=== PATIENT | female | born 2000 | race Caucasian/White ===

== ENCOUNTER 2019-11-06 14:12 | Emergency (ER) | payer SELFPAY ==
[~2019-11-06] VITALS: Ht 167.6 cm; Wt 75.9 kg
[2019-11-06 14:20] VITALS: TEMP 98.9
[2019-11-06 15:15] VITALS: BP 138/96; PULSE 102
== END 2019-11-06 15:15 | disposition home or self-care (01) ==
LOC: COL.ER 14:12
DX: Z91.018 Allergy to other foods (principal)
CPT/HCPCS: J1100

== ENCOUNTER 2020-01-19 09:17 | Emergency (ER) | payer MEDICAID ==
[~2020-01-19] VITALS: Ht 167.6 cm; Wt 75.9 kg
[2020-01-19 09:24] VITALS: TEMP 98.1
[2020-01-19 10:28] LABS: BASO % 0.6 % (0.0-2.0); EOS % 0.2 % (0-4.0); GRAN # 4.2 (1.4-6.5); GRAN % 66.4 % (42.2-75.2); HEMATOCRIT 37.2 % (35.0-45.0); HEMOGLOBIN 12.3 g/dl (12.0-15.0); LYMPH # 1.6 (1.2-3.4); LYMPH % 25.8 % (20.0-51.0); MEAN CELL VOLUME 93 fl (80.0-95.0); MEAN CORPUSCULAR HEMOGLOBIN 31 pg (26.0-32.0); MEAN CORPUSCULAR HGB CONC 33 g/dl (33.0-37.0); MEAN PLATELET VOLUME 9.1 fl (7.4-10.4); MONO # 0.4 (0.1-0.6); MONO % 6.8 % (1.7-9.3); PLATELET COUNT 301 K/mm3 (130-400); RED BLOOD COUNT 3.99 M/mm3 (4.10-5.30); REDCELL DISTRIBUTION WIDTH-CV 12.9 % (11.5-14.5)
[2020-01-19 10:38] LABS: ALBUMIN 4.3 gm/dL (3.5-5.0); BILIRUBIN,TOTAL 0.6 mg/dL (0.0-1.0); CALCIUM 9.4 mg/dL (8.4-10.2); CREATININE, serum 0.67 (0.52-1.25); POTASSIUM 4.2 mmol/L (3.4-5.0); TOTAL PROTEIN 7.2 gm/dL (6.4-8.2)
[2020-01-19 14:08] VITALS: BP 119/81; PULSE 74
== END 2020-01-19 14:09 | disposition home or self-care (01) ==
LOC: COL.ER 09:17
PROVIDERS: Emergency Medicine
DX: O02.0 Blighted ovum and nonhydatidiform mole (principal)
CPT/HCPCS: J2791

== ENCOUNTER → 2020-01-21 | Outpatient (CLI) | payer MEDICAID ==
[~2020-01-21] VITALS: Ht 167.6 cm; Wt 185.0 kg
[2020-01-21 15:07] VITALS: BP 128/77; PULSE 91; TEMP 97.5
== END ==
LOC: COL.ER 15:04
DX: Z00.00 Encounter for general adult medical examination without abnormal findings (principal)

== ENCOUNTER 2020-08-07 10:19 | Outpatient (CLI) | payer OTHER, MEDICAID ==
[~2020-08-07] VITALS: Ht 167.6 cm; Wt 79.1 kg
--- NOTE | 2020-08-07 10:25 | NUR ---
Admits to L&D, ambulatory to unit. Accompanied by spouse. Patient verbalizes concerns about yesterday and symptoms she experienced on 08/06. Denies any specific complaints for today. Note, on 08/06, patient was working, and experienced her underwear wet on four different occasions. Reports c/o RLQ abdominal pain, right flank pain, and some mid abdomen discomfort on 08/06. Denies any tenderness today upon assessment. Reports she was urinating more frequently than normal yesterday, and had some chills. Note oral temp 99.1, and visible beaded sweat on upper lip, forehead. Denies any fevers. Reports recent travel to [place], but denies any Covid-19 symptoms, or any recent exposure to Covid-19 positive individual. Note patient sees bird trapper for known PFO, but denies any complications, or medications related to this. Denies decreased movemement, nausea or vomiting. Reports she has promethazine on hand, but last time she took it was 5 days ago while in [place]. Reports she decided to come in today for yesterday's complaints after speaking with her mom. Discussed the importance of being evaluated at time she believes she has ruptured in the future. Verbalizes understanding. Denies any moisture in her underwear today, or any need to wear a lata pad. SVE completely dry, scant amount of white discharge noted, closed, thick, high, unable to determine presenting part.
[2020-08-07 10:35] VITALS: BP 131/60; PULSE 89; TEMP 99.1
[2020-08-07] MEDS ORDERED: COLACE 100100 MG/CAP PO (10:50)
[2020-08-07] MEDS ORDERED: PRENATAL TABLET PO (10:50)
[2020-08-07] MEDS ORDERED: PHENERGAN 25 TA25 MG (10:50)
[2020-08-07 11:00] VITALS: BP 113/58; PULSE 87
[2020-08-07 11:48] LABS: COLLECTION METHOD CATHETER
[2020-08-07 11:54] LABS: BASO % 0.3 % (0.0-2.0); EOS % 0.3 % (0-4.0); GRAN # 8.5 (1.4-6.5); GRAN % 78.2 % (42.2-75.2); HEMOGLOBIN 11.2 g/dl (12.5-16.0); LYMPH # 1.7 (1.2-3.4); LYMPH % 15.2 % (20.0-51.0); MEAN CELL VOLUME 95 fl (80.0-100.0); MEAN CORPUSCULAR HEMOGLOBIN 32 pg (27.0-31.0); MEAN CORPUSCULAR HGB CONC 34 g/dl (33.0-37.0); MEAN PLATELET VOLUME 9.4 fl (7.4-10.4); MONO # 0.6 (0.1-0.6); MONO % 5.4 % (1.7-9.3); PLATELET COUNT 280 K/mm3 (130-400); RED BLOOD COUNT 3.52 M/mm3 (4.10-5.30); REDCELL DISTRIBUTION WIDTH-CV 13.3 % (11.5-14.5)
[2020-08-07 11:56] LABS: HEMATOCRIT 33.4 % (37.0-47.0)
[2020-08-07 12:02] LABS: ALBUMIN 3.4 gm/dL (3.5-5.0); BILIRUBIN,TOTAL 0.2 mg/dL (0.0-1.0); CALCIUM 8.9 mg/dL (8.4-10.2); CREATININE, serum 0.43 (0.52-1.25); POTASSIUM 4.1 mmol/L (3.4-5.0); TOTAL PROTEIN 6.5 gm/dL (6.4-8.2)
[2020-08-07 12:03] LABS: PH 8 (5-8); SQUAMOUS EPITHELIAL 0-2 /hpf; URINE APPEARANCE Hazy; URINE BACTERIA Rare /hpf; URINE BILIRUBIN Negative (NEGATIVE); URINE BLOOD 1+ (NEGATIVE); URINE COLOR Yellow; URINE GLUCOSE Negative (NEGATIVE); URINE KETONE Negative (NEGATIVE); URINE LEUKOCYTE ESTERASE Negative (NEGATIVE); URINE NITRATE Negative (NEGATIVE); URINE PROTEIN(semi-quant) Negative (NEGATIVE); URINE RBC 0-2 /hpf; URINE UROBILINOGEN Negative (NEGATIVE)
--- NOTE | 2020-08-07 12:12 | NUR ---
Allowed off of EFM per 's verbal order. Discharge to home order obtained after noting has reviewed all labs and monitor strip. Discussed with patient plan of care, lab result findings, that there is a chance she has a small kidney stone with small amount of blood found in urine. Encouraged increased oral hydration. Patient verbalizes understanding. Encouraged to call clinic if not feeling better by tomorrow. Verbalizes understanding.
[2020-10-23] MEDS ORDERED: FERROUSGLUC256MG (09:57)
[2020-11-15] MEDS ORDERED: IBU800 M1 PO (08:27)
[2020-11-15] MEDS ORDERED: PERCOCET 325 MG1 TA2 PO (08:27)
== END 2020-08-07 12:20 | disposition home or self-care (01) ==
LOC: LDRO 10:19 → LDR 10:29 → LDRO 12:20
PROVIDERS: Obstetrics & Gynecology
DX: O42.912 Preterm premature rupture of membranes, unspecified as to length of time between rupture and onset of labor, second trimester (principal); Z3A.26 26 weeks gestation of pregnancy
CPT/HCPCS: OP

== ENCOUNTER 2020-10-31 18:41 | Outpatient (CLI) | payer OTHER, MEDICAID ==
[~2020-10-31] VITALS: Ht 167.6 cm; Wt 90.9 kg
[~2020-10-31 18:41] MED LIST: COLACE 100100 MG/CAP PO; FERROUSGLUC256MG; PHENERGAN 25 TA25 MG; PRENATAL TABLET PO
--- NOTE | 2020-10-31 18:55 | NUR ---
185- PATIENT AND SPOUSE AMBULATORY TO THE UNIT. PATIENT IS A AT 38.6 WHO IS A PATIENT OF DR. YATES. WAS SEEN IN THE OFFICE TODAY AND MEMBRANES WERE SWEPT PER PATIENT. QUENTIN SINCE 1500 AND GETTTING MORE INTENSE SO PATIENT CAME IN. PATIENT REPORTS GFM, NO LOF , NO BLEEDING. 1899- EFM AND TOCO ON AND TRACING. VITALS TAKEN, ASSESSMENT COMPLETED. SVE /-2. PLAN OF CARE DISCUSSED AND PATIENT VERBALZIED UNDERSTANDING. CALL LIGHT WITHIN REACH.
[2020-10-31 19:15] VITALS: BP 134/84; PULSE 109; TEMP 98.1
[2020-10-31] MEDS ORDERED: PRENATAL TABLET PO (19:32)
[2020-10-31 20:11] VITALS: BP 115/77; PULSE 103
[2020-11-15] MEDS ORDERED: PERCOCET 325 MG1 TA2 PO (08:27)
[2020-11-15] MEDS ORDERED: IBU800 M1 PO (08:27)
== END 2020-10-31 20:20 | disposition home or self-care (01) ==
LOC: LDRO 18:41
DX: O62.9 Abnormality of forces of labor, unspecified (principal); Z3A.38 38 weeks gestation of pregnancy

== ENCOUNTER 2020-11-10 17:55 | Outpatient (CLI) | payer OTHER, MEDICAID ==
[~2020-11-10] VITALS: Ht 167.6 cm; Wt 94.1 kg
--- NOTE | 2020-11-10 18:00 | NUR ---
1800-G2L0 40.[address] Jackson ambulatory to LR 4 with complaint of possible SROM last night at 1900. Denies contractions. Assisted to bed and placed on EFM. Amnitest neg, SVE /-3 patient BOWI. VSS. Asssessment complete. Dr. Jackson on unit and updaetd on patient. Orders given to discharge with reacitve strip and no need to recheck cervix if not feeling contractions. Patient continues to deny contractions. 1829-off EFM. Discharge instructions reviewed and updated on early labor vs active labor and when to return. Patient verbalized understanding and denies questions. 1845-Ambulatory off unit.
[2020-11-10 18:30] VITALS: BP 128/73; PULSE 96; TEMP 98.4
[2020-11-15] MEDS ORDERED: PERCOCET 325 MG1 TA2 PO (08:27)
[2020-11-15] MEDS ORDERED: IBU800 M1 PO (08:27)
== END 2020-11-10 18:46 | disposition home or self-care (01) ==
LOC: LDRO 17:55 → LDR 18:00 → LDRO 18:46
DX: O42.92 Full-term premature rupture of membranes, unspecified as to length of time between rupture and onset of labor (principal); Z3A.40 40 weeks gestation of pregnancy
CPT/HCPCS: OP

== ENCOUNTER 2020-11-19 14:28 | Emergency (ER) | payer OTHER, MEDICAID ==
[~2020-11-19] VITALS: Ht 167.6 cm; Wt 94.1 kg
[~2020-11-19 14:28] MED LIST changes: +IBU800 M1 PO; +PERCOCET 325 MG1 TA2 PO
[2020-11-19 14:39] VITALS: BP 144/84; TEMP 98.5
[2020-11-19 15:09] VITALS: PULSE 79
== END 2020-11-19 15:09 | disposition home or self-care (01) ==
LOC: COL.ER 14:28
DX: Z39.2 Encounter for routine postpartum follow-up (principal)